=== PATIENT | male | born 1960 | race Caucasian/White ===

== ENCOUNTER 2021-04-15 18:06 | Emergency (ER) | payer OTHER ==
[2021-04-15] MEDS ORDERED: KETOROLAC 15 MG/ML VIAL IM STA (18:46)
[2021-04-15] MEDS ORDERED: HYDROmorphone 1 MG/ML CARPUJECT IM STA (18:46)
--- NOTE | 2021-04-15 18:49 | ED Physician Documentation ---
PD HPI BACK PAIN - Stated complaint Stated Complaint: BACK PX - Chief complaint Chief Complaint: Back Pain - History obtained from History obtained from: Patient - Additional information Additional information: 60-year-old gentleman has history of chronic back pain, its been much worse over the last month. He has basically been camping in a trailer and position changes have gotten to him. Lower back pain radiating into the right leg with some numbness of the right thigh. No saddle anesthesia or incontinence. No fevers. He has a history of back surgery in the past. Review of Systems Ten Systems: 10 systems reviewed and negative Constitutional: denies: Fever, Chills Cardiac: reports: Reviewed and negative Respiratory: reports: Reviewed and negative PD PAST MEDICAL HISTORY - Past Medical History Past Medical History: Yes - Past Surgical History Past Surgical History: Yes Ortho: Spine surgery - Present Medications Home Medications: Ambulatory Orders Medication Instructions Recorded Confirmed Cyclobenzaprine [Flexeril] 10 mg PO TID PRN #20 tablet 04/15/21 HYDROcod/ACETAM 5/325 [[place] 5/325] 1 - 2 tab PO Q6H PRN #15 tablet 04/15/21 Lidocaine Patch 5% [Lidoderm Patch] 1 patch TOP DAILY PRN #10 patch 04/15/21 - Allergies Allergies/Adverse Reactions: Allergies Allergy/AdvReac Type Severity Reaction Status Date / Time chlorzoxazone Allergy Anaphylaxis Verified 04/15/21 18:32 [From [facility]] - Social History Does the pt smoke?: Yes Smoking Status: Current every day smoker Does the pt drink ETOH?: No Does the pt have substance abuse?: No - POLST Patient has POLST: No PD ED PE NORMAL - Vitals Vital signs reviewed: Yes - General General: Alert and oriented X 3, No acute distress - Abdomen Abdomen: Soft, Non tender - Back Back: Other (Muscular tenderness of the right paralumbar area without midline spinal tenderness.) - Extremities Extremities: Other (Diminished sensation in a right L4/L5 distribution but with intact reflexes and strength throughout the lower extremities.) - Neuro Neuro: Alert and oriented X 3, Normal speech Results - Vitals Vitals: Vital Signs - 24 hr 04/15/21 04/15/21 18:24 19:11 Temperature 36.2 C L 36.4 C L Heart Rate 84 82 Respiratory 16 14 Rate Blood Pressure 183/104 H 175/98 H O2 Saturation 97 99 Oxygen O2 Source Room air PD MEDICAL DECISION MAKING - ED course ED course: This patient has seemingly uncomplicated musculoskeletal back pain. The patient has no "red flags." Specifically denies IV drug use, fevers, incontinence, saddle anesthesia. Spinal epidural abscess was considered, given that the patient has no fever, is not diabetic, has no spinal tenderness, does not use IV drugs, and has no bilateral neurologic symptoms, the diagnosis of spinal epidural abscess is considered exceedingly unlikely. I am prescribing a short course of short-acting opioid pain medication for this patient. 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 I have discussed that the opioids are for short term therapy only, and will not be refilled from the ED. Departure - Departure Disposition: 01 Home, Self Care Clinical Impression: Sciatica Qualifiers: Laterality: right Qualified Code(s): M54.31 - Sciatica, right side Condition: Good Record reviewed to determine appropriate education?: Yes Instructions: ED Sciatica Prescriptions: Cyclobenzaprine [Flexeril] 10 mg PO TID PRN #20 tablet PRN Reason: Spasms Lidocaine Patch 5% [Lidoderm Patch] 1 patch TOP DAILY PRN #10 patch PRN Reason: pain HYDROcod/ACETAM 5/325 [[place] 5/325] 1 - 2 tab PO Q6H PRN #15 tablet PRN Reason: Pain Comments: Call your doctor to arrange a follow-up appointment, make the next available appointment. In the interim, return anytime if worse or if new symptoms develop. I am prescribing a short course of narcotic pain medication for you. These are potentially dangerous and addictive medications that should be used carefully. These medications may constipate you. Take an [id number] stool softener (docusate) twice daily with plenty of water while taking these medications. If you go 24 hours without a bowel movement, take [id number] miralax, per package instructions. Do not drink or drive while taking these medications. If you received narcotic or sedating medications while in the emergency department, do not drive for 24 hours. Store this medication in a safe, secure place and out of reach of children. It is a violation of federal law to give or sell this medication to another person or to use in a manner other than prescribed. The ED will not refill narcotic prescriptions, including prescriptions lost or stolen. To dispose of unwanted medications: 1. [facility] at [address] in [place] has a medication drop box. They accept prescription medications (in pill form) Monday through Monday 9:00 a.m. to 5:00 p.m. 2. The [facility] [employer] accepts prescription medications (in pill form only) for disposal year round. Call for more information. 3. Contact the [facility] for the next [facility] sponsored prescription drug collection event. , [phone], or [phone]; Note that many narcotic pain relievers also contain Tylenol/acetaminophen. Please ensure that your total dose of acetaminophen from all sources does not exceed 3 g (3000 mg) per day. s Discharge Date/Time: 04/15/21 19:12
[2021-04-15 19:12] VITALS: BP 175/98
== END 2021-04-15 19:12 | disposition home or self-care (01) ==
LOC: ED 18:06
DX: F17.200 Nicotine dependence, unspecified, uncomplicated (principal); M54.31 Sciatica, right side
CPT/HCPCS: 96372; 99283; 99284; J1170

== ENCOUNTER 2021-04-20 15:17 | Emergency (ER) | payer OTHER ==
[2021-04-20 16:00] VITALS: BP 179/106
[2021-04-20] MEDS ORDERED: oxyCODONE 5 MG TABLET PO STA (16:43)
--- NOTE | 2021-04-20 17:08 | ED Physician Documentation ---
History of Present Illness - Stated complaint Stated Complaint: BACK PX - Chief complaint Chief Complaint: Back Pain - Additonal information Additional information: 60-year-old male return to the emergency department with worsening right-sided low back pain with radiation to the leg. He does report a history of sciatica and has had previous L4-L5 spinal surgery. He was seen recently for similar and has been taking muscle relaxer as well as a narcotic without marked improvement. This gentleman did travel to [facility] from [place] in a truck with a camper trailer. He thinks sitting for a long period of time has exacerbated his chronic back pain. He is unsure if he is can remain on [facility] to receive primary care or if he will be traveling back to [place] where his primary provider is. He has no fevers or saddle anesthesia. He has controlled his bowel or bladder function though he reports that when he strains to jump into the truck he does find that he dribbles urine though he is aware of this process. Review of Systems Constitutional: reports: Reviewed and negative Ears: reports: Reviewed and negative Nose: reports: Reviewed and negative Throat: reports: Reviewed and negative Cardiac: reports: Reviewed and negative Skin: reports: Reviewed and negative Musculoskeletal: reports: Back pain PD PAST MEDICAL HISTORY - Past Medical History Past Medical History: Yes Musculoskeletal: Chronic back pain - Past Surgical History Past Surgical History: Yes Ortho: Spine surgery - Present Medications Home Medications: Ambulatory Orders Medication Instructions Recorded Confirmed Cyclobenzaprine [Flexeril] 10 mg PO TID PRN #20 tablet 04/15/21 04/20/21 HYDROcod/ACETAM 5/325 [[place] 5/325] 1 - 2 tab PO Q6H PRN #15 tablet 04/15/21 04/20/21 Lidocaine Patch 5% [Lidoderm Patch] 1 patch TOP DAILY PRN #10 patch 04/15/21 04/20/21 Meloxicam [Mobic] 7.5 mg PO BID 10 Days #20 tablet 04/20/21 dexAMETHasone [Decadron] 4 mg PO DAILY #5 tablet 04/20/21 - Allergies Allergies/Adverse Reactions: Allergies Allergy/AdvReac Type Severity Reaction Status Date / Time chlorzoxazone Allergy Anaphylaxis Verified 04/20/21 15:35 [From [facility]] - Social History Does the pt smoke?: No Smoking Status: Never smoker Does the pt drink ETOH?: No Does the pt have substance abuse?: Yes Substance Use and Type: Marijuana, CBD oil / Products - Immunizations Immunizations are current?: Yes - POLST Patient has POLST: No PD ED PE EXPANDED - General General: Alert, No acute distress, Other (Obese) - Cardiac Cardiac: Regular Rate, Radial strong equal, Cap refill < 2 sec. No: Murmur Present - Respiratory Respiratory: Clear to ausultation jay. No: Distress, Labored - Abdomen Abdomen: Normal Bowel sounds. No: Tender to palpation - Back Back: CVA TTP left (Unassisted gait. 2+ patellar reflexes bilaterally. Paresthesias and tingling of the right lateral leg at thigh and calf. Motor strength 5 of 5 bilaterally.), Other - Derm Derm: Normal color, Warm and dry, Other (Well-healed surgical scar in the L4-L5) Results - Vitals Vitals: Vital Signs - 24 hr 04/20/21 04/20/21 15:28 15:59 Temperature 36.4 C L 36.2 C L Heart Rate 80 82 Respiratory 20 20 Rate Blood Pressure 215/117 H 179/106 H O2 Saturation 99 99 Oxygen O2 Source Room air PD MEDICAL DECISION MAKING - ED course Complexity details: reviewed results, re-evaluated patient, d/w patient ED course: This is a well-appearing 60-year-old male who presents with acute on chronic low back pain. This is gotten worse after recently traveling in a truck and trailer from [place] to [place]. With the exception of his age however he does not have any back pain red flags. He had reported to the nurse incontinence but this seems to be stress-induced when lifting himself into the truck. We discussed the long-term management the back pain will need the assistance of a primary care provider and he is deciding whether to remain in [facility] or return to [place]. I have offered him in a prescription of Decadron to help with the chronic low back pain. He denies any history of diabetes. I have also encouraged gentle stretching and moderate weight loss given his obesity. Otherwise emergent return precautions were discussed for worsening symptoms. Departure - Departure Disposition: 01 Home, Self Care Clinical Impression: Low back pain Qualifiers: Chronicity: chronic Back pain laterality: right Sciatica presence: with sciatica Sciatica laterality: sciatica of right side Qualified Code(s): M54.41 - Lumbago with sciatica, right side; G89.29 - Other chronic pain Condition: Stable Record reviewed to determine appropriate education?: Yes Prescriptions: dexAMETHasone [Decadron] 4 mg PO DAILY #5 tablet Meloxicam [Mobic] 7.5 mg PO BID 10 Days #20 tablet Comments: Ed you have chronic back pain that is likely worsened after your recent travel in the truck to [place] as well as stepping in and out of your camper bed. Please fill the prescription for the Decadron and begin taking once daily for the next 5 days. Once you finish the Decadron then please fill the prescription for the meloxicam and begin taking as directed. While taking the Decadron you can take 500 mg of Tylenol 3-4 times a day for further pain relief. Continue heat or ice whichever feels better as well as lidocaine patches. In the long-term you are going to need a primary care provider to help you manage your back pain. He will likely initially be referred to physical therapy and if that is not effective then further imaging can be discussed such as MRI. If at any point you lose control of your bowel or bladder function, lose sensation in the genitalia, or have fevers then please return immediately to the ER.
== END 2021-04-20 17:43 | disposition home or self-care (01) ==
LOC: ED 15:17
DX: M54.41 Lumbago with sciatica, right side (principal); G89.29 Other chronic pain
CPT/HCPCS: 99282; 99284; A9270